=== PATIENT | male | born 1945 | race Caucasian/White ===

== ENCOUNTER → 2017-02-13 | Outpatient (CLI) | payer BC ==
[2017-02-13 08:19] LABS: BUN/CREATININE RATIO 19 (0-10)
== END ==
LOC: LAB 07:12
PROVIDERS: Emergency Medicine
DX: J45.20 Mild intermittent asthma, uncomplicated (principal); R07.89 Other chest pain; K21.9 Gastro-esophageal reflux disease without esophagitis; E78.2 Mixed hyperlipidemia
CPT/HCPCS: 36415; 80053; 80061; 83704

== ENCOUNTER → 2020-12-21 | Outpatient (CLI) | payer BC ==
[~2020-12-21] MED LIST: ADULT LOW DOSE81 MG PO; FLOMAX 0.4 MG0.4 MG PO; LIPITOR40 MG PO; LISINOPRIL5 MG PO; LOPRESSOR 25 MG25 MG PO; MULTI-VITAMIN1 EACH PO; NITROGLYCERIN0.4 MG SL; OMEPRAZOLE40 MG PO
[2020-12-21 08:21] LABS: HEMOGLOBIN 13.3 gm/dl (14.0-17.5); RED BLOOD COUNT 4.22 M/UL (4.20-5.50); WHITE BLOOD COUNT 3.6 K/UL (4.5-11.0)
[2020-12-21 08:54] LABS: BUN/CREATININE RATIO 17 (0-10)
[2020-12-23 18:12] LABS: CHOLESTEROL, TOTAL 155 mg/dL (100-199); HDL SIZE 9.3 nm (>=9.2); HDL-C 55 mg/dL (>39); HDL-P (TOTAL) 38.6 umol/L (>=30.5); LARGE HDL-P 6.6 umol/L (>=4.8); LARGE VLDL-P 2.6 nmol/L (<=2.7); LDL SIZE 20.8 nm (>20.5); LDL SIZE 20.8 nm (>=20.8); LDL-C 83 mg/dL (0-99); LDL-P 869 nmol/L (<1000); LP-IR SCORE 44 (<=45); SMALL LDL-P 448 nmol/L (<=527); TRIGLYCERIDES 91 mg/dL (0-149); VLDL SIZE 44.5 nm (<=46.6)
== END ==
LOC: LAB 07:55
PROVIDERS: Emergency Medicine
DX: Z12.5 Encounter for screening for malignant neoplasm of prostate (principal); D64.89 Other specified anemias; E78.2 Mixed hyperlipidemia; I10 Essential (primary) hypertension; I25.10 Atherosclerotic heart disease of native coronary artery without angina pectoris; J30.9 Allergic rhinitis, unspecified; J45.20 Mild intermittent asthma, uncomplicated; K21.9 Gastro-esophageal reflux disease without esophagitis; K40.91 Unilateral inguinal hernia, without obstruction or gangrene, recurrent; L60.1 Onycholysis; M15.8 Other polyosteoarthritis; N40.1 Benign prostatic hyperplasia with lower urinary tract symptoms; R35.1 Nocturia
CPT/HCPCS: 36415; 80053; 80061; 83704; 84550; 85025

== ENCOUNTER → 2021-05-17 | Outpatient (CLI) | payer BC ==
[2021-05-17 09:19] LABS: HEMOGLOBIN 13.7 gm/dl (14.0-17.5); RED BLOOD COUNT 4.37 M/UL (4.20-5.50); WHITE BLOOD COUNT 4.2 K/UL (4.5-11.0)
[2021-05-17 09:32] LABS: BUN/CREATININE RATIO 16 (0-10)
== END ==
LOC: LAB 08:53
PROVIDERS: Emergency Medicine
DX: D64.89 Other specified anemias (principal); I10 Essential (primary) hypertension; K21.9 Gastro-esophageal reflux disease without esophagitis; E78.2 Mixed hyperlipidemia; J30.9 Allergic rhinitis, unspecified; M15.8 Other polyosteoarthritis
CPT/HCPCS: 36415; 80048; 85025

== ENCOUNTER → 2021-11-01 | Outpatient (CLI) | payer BC ==
[2021-11-01 09:39] LABS: HEMOGLOBIN 13.7 gm/dl (14.0-17.5); RED BLOOD COUNT 4.29 M/UL (4.20-5.50); WHITE BLOOD COUNT 3.6 K/UL (4.5-11.0)
[2021-11-02 07:11] LABS: CALCIUM, SERUM 8.7 mg/dL (8.6-10.2); CREATININE, SERUM 0.87 mg/dL (0.76-1.27); POTASSIUM, SERUM 4.4 mmol/L (3.5-5.2)
== END ==
LOC: LAB 08:15
PROVIDERS: Emergency Medicine
DX: I25.10 Atherosclerotic heart disease of native coronary artery without angina pectoris (principal); I10 Essential (primary) hypertension; K21.9 Gastro-esophageal reflux disease without esophagitis; E78.2 Mixed hyperlipidemia
CPT/HCPCS: 36415; 80048; 84153; 85025

== ENCOUNTER → 2021-12-19 | Outpatient (CLI) | payer BC | LOC: KOH-I 10:18 | DX: M25.562 Pain in left knee (principal); M25.362 Other instability, left knee; S83.232A Complex tear of medial meniscus, current injury, left knee, initial encounter | CPT/HCPCS: 73721 ==

== ENCOUNTER → 2021-12-20 | Outpatient (CLI) | payer BC ==
[2021-12-20 08:35] LABS: HEMOGLOBIN 14.3 gm/dl (14.0-17.5); RED BLOOD COUNT 4.49 M/UL (4.20-5.50); WHITE BLOOD COUNT 4.2 K/UL (4.5-11.0)
[2021-12-20 09:13] LABS: BUN/CREATININE RATIO 16 (0-10)
== END ==
LOC: LAB 07:58
PROVIDERS: Physician Assistant
DX: E78.5 Hyperlipidemia, unspecified (principal)
CPT/HCPCS: 36415; 80048; 80061; 80076; 84443; 85025

== ENCOUNTER → 2022-01-24 | Day surgery (SDC) | payer BC ==
[~2022-01-24] MED LIST changes: +COLACE100 MG PO; +HYDROCODON-ACE1 EAC2 PO; +PLAVIX75 MG PO; +PROAIR HFA8.5 GM INH; +PROTONIX40 MG PO; +ZOCOR40 MG PO
== END | disposition home or self-care (01) ==
LOC: OR 07:30
DX: K40.20 Bilateral inguinal hernia, without obstruction or gangrene, not specified as recurrent (principal); I25.10 Atherosclerotic heart disease of native coronary artery without angina pectoris; E78.5 Hyperlipidemia, unspecified; I10 Essential (primary) hypertension; Z95.1 Presence of aortocoronary bypass graft; Z88.8 Allergy status to other drugs, medicaments and biological substances; Z79.82 Long term (current) use of aspirin; Z79.02 Long term (current) use of antithrombotics/antiplatelets; Z79.899 Other long term (current) drug therapy
CPT/HCPCS: C1781; C9089; J0690; J1100; J1170; J2405; J2704; J3010; J7120

== ENCOUNTER → 2022-03-26 | Outpatient (CLI) | payer BC ==
[2022-03-26 10:21] LABS: HEMOGLOBIN 14.4 gm/dl (14.0-17.5); RED BLOOD COUNT 4.44 M/UL (4.20-5.50); WHITE BLOOD COUNT 4.5 K/UL (4.5-11.0)
[2022-03-26 10:49] LABS: BUN/CREATININE RATIO 18 (0-10)
== END ==
LOC: LAB 09:40
PROVIDERS: Internal Medicine
DX: I25.10 Atherosclerotic heart disease of native coronary artery without angina pectoris (principal)
CPT/HCPCS: 36415; 80048; 80061; 80076; 84443; 85025

== ENCOUNTER → 2022-05-01 | Outpatient (CLI) | payer BC | LOC: KOH-I 15:56 | DX: R05.9 Cough, unspecified (principal) | CPT/HCPCS: 71046 ==

== ENCOUNTER → 2022-06-07 | Outpatient (CLI) | payer BC ==
[~2022-06-07] VITALS: Ht 190.5 cm; Wt 90.3 kg
[~2022-06-07] MED LIST changes: +PLAVIX 75 MG TA75 MG PO; +PROTONIX 40 MG40 M1 PO; +PROVENTIL HFA6.7 GM INH
[2022-06-07 11:39] LABS: HEMOGLOBIN 13.7 gm/dl (14.0-17.5); RED BLOOD COUNT 4.22 M/UL (4.20-5.50); WHITE BLOOD COUNT 4.4 K/UL (4.5-11.0)
[2022-06-07 11:46] LABS: BUN/CREATININE RATIO 20 (0-10)
== END ==
LOC: EDSTATUS 10:00 → OPSV2 10:00
PROVIDERS: Orthopaedic Surgery
DX: Z01.818 Encounter for other preprocedural examination (principal); M17.12 Unilateral primary osteoarthritis, left knee
CPT/HCPCS: 36415; 71046; 80048; 85027; 93005